=== PATIENT | male | born 1955 | race Caucasian/White ===

== ENCOUNTER 2019-11-12 22:17 | Emergency (ER) | payer MEDICARE, OTHER ==
--- NOTE | 2019-11-12 22:36 | EDM.PDOC ---
ED HPI GENERAL MEDICAL PROBLEM - General Chief Complaint: Back Pain or Injury Stated Complaint: [facility] Time Seen by Provider: 11/12/19 22:26 - History of Present Illness INITIAL COMMENTS - FREE TEXT/NARRATIVE: 64-year-old male presents the emergency room with pain under his left shoulder blade. This started around 3:00 this afternoon and does not get any better. The patient was riding in a combine when this occurred. Patient really denies any injury or trauma to the area. About 4 hours prior to the pain starting he was working on some trailers and was crawling underneath him but does not recall anything that would have caused an injury like this. What he describes as a knot on the undersurface of his shoulder blade. He has no breathing difficulties no shortness of breath no classic chest pain. Denies any gastrointestinal symptoms no abdominal pain. Does have history of back problems has had 2 back surgeries in the past but this is a lot different type of pain. Upper Back Pain Score (Numeric/FACES): 10 - Related Data Allergies Allergy/AdvReac Type Severity Reaction Status Date / Time No Known Allergies Allergy Verified 11/12/19 22:27 Home Meds: Home Meds . [No Known Home Meds] 11/12/19 [History] ED ROS GENERAL - Review of Systems Review Of Systems: See Below Constitutional: Reports: No Symptoms HEENT: Reports: No Symptoms Respiratory: Reports: No Symptoms Cardiovascular: Reports: Chest Pain (He does not have classic back pain but his pain could be chest in origin.). Denies: No Symptoms Endocrine: Reports: No Symptoms GI/Abdominal: Reports: No Symptoms : Reports: No Symptoms Musculoskeletal: Reports: Back Pain Skin: Reports: No Symptoms Neurological: Reports: No Symptoms ED EXAM,LOWER BACK PAIN/INJURY - Physical Exam Exam: See Below Exam Limited By: Other (His blood pressure was a little high with a systolic of 150 however this is come down to 129.) General Appearance: Alert, No Apparent Distress Head: Atraumatic, Normocephalic Neck: Normal Inspection, Supple, Non-Tender, Full Range of Motion Respiratory/Chest: No Respiratory Distress, Lungs Clear, Normal Breath Sounds Cardiovascular: Regular Rate, Rhythm, No Edema, No Murmur (Male) Exam: No Hernia Rectal (Males) Exam: Perirectal Abscess Back Exam: Other (The pain is right underneath the scapula I cannot palpate or manipulate his scapula in the any way to make the pain worse). No: Muscle Spasm, Paraspinal Tenderness, Vertebral Tenderness Extremities: Normal Inspection, No Pedal Edema Course - Vital Signs Last Recorded V/S: Last Vital Signs Temp 36.4 C 11/12/19 22:25 Pulse 74 11/12/19 22:25 Resp 20 11/12/19 22:25 BP 150/85 H 11/12/19 22:25 Pulse Ox 97 11/12/19 22:25 - Orders/Labs/Meds Orders: Active Orders 24 hr Category Date Time Status EKG Documentation Completion [RC] STAT Care 11/12/19 22:43 Active Chest 1V Frontal [CR] Stat Exams 11/12/19 22:42 Ordered Labs: Laboratory Tests 11/12/19 11/12/19 11/12/19 Range/Units 23:03 23:03 23:03 WBC 6.90 (4.23-9.07) K/mm3 RBC 4.51 L (4.63-6.08) M/mm3 Hgb 14.6 (13.7-17.5) gm/dl Hct 41.7 (40.1-51.0) % MCV 92.5 H (79.0-92.2) fl MCH 32.4 H (25.7-32.2) pg MCHC 35.0 (32.2-35.5) g/dl RDW Std Deviation 42.4 (35.1-43.9) fL Plt Count 274 (163-337) K/mm3 MPV 8.8 L (9.4-12.3) fl Neut % (Auto) 69.2 H (34.0-67.9) % Lymph % (Auto) 17.1 L (21.8-53.1) % [place] % (Auto) 8.6 (5.3-12.2) % Eos % (Auto) 4.1 (0.8-7.0) Baso % (Auto) 0.9 (0.1-1.2) % Neut # (Auto) 4.78 (1.78-5.38) K/mm3 Lymph # (Auto) 1.18 L (1.32-3.57) K/mm3 [place] # (Auto) 0.59 (0.30-0.82) K/mm3 Eos # (Auto) 0.28 (0.04-0.54) K/mm3 Baso # (Auto) 0.06 (0.01-0.08) K/mm3 D-Dimer, Quantitative 0.33 (0.19-0.50) mg/L Sodium 128 L (136-145) mEq/L Potassium 4.0 (3.5-5.1) mEq/L Chloride 94 L (98-107) mEq/L Carbon Dioxide 26 (21-32) mEq/L Anion Gap 12.0 (5-15) BUN 6 L (7-18) mg/dL Creatinine 0.8 (0.7-1.3) mg/dL Est Cr Clr Drug Dosing 80.08 mL/min Estimated GFR (MDRD) > 60 (>60) mL/min BUN/Creatinine Ratio 7.5 L (14-18) Glucose 109 (80-115) mg/dL Calcium 8.9 (8.5-10.1) mg/dL Total Bilirubin 0.3 (0.2-1.0) mg/dL AST 28 (15-37) U/L ALT 19 (16-63) U/L Alkaline Phosphatase 105 (46-116) U/L Troponin I < 0.017 (0.00-0.056) ng/mL Total Protein 7.0 (6.4-8.2) g/dl Albumin 3.5 (3.4-5.0) g/dl Globulin 3.5 gm/dL Albumin/Globulin Ratio 1.0 (1-2) Meds: Medications Discontinued Medications Generic Name Dose Route Start Last Admin Trade Name Suman PRN Reason Stop Dose Admin Hydrocodone Bitart/Acetaminophen 1 tab 11/12/19 23:53 Wetmore 325-5 Mg PO 11/12/19 23:54 ONETIME ONE - Re-Assessments/Exams Free Text/Narrative Re-Assessment/Exam: 11/12/19 23:56 Work-up thus far is unremarkable. Chest x-ray shows no acute changes EKG is nondiagnostic without acute ST-T wave changes he has a mild sinus tachycardia rate 101 he has been up as high as 104 that I have seen on telemetry oftentimes down into the mid 90s. This could be secondary to pain. At this point I discussed further evaluation with the patient including but not limited to 1 rechecking a troponin in 2 hours[address] of the chest to see if there is some else going on, especially with this borderline tachycardia the possibil ity of a PE does exist. Unlikely is a problem with his aorta. At this point the patient really wants to go home. On repeat examination his scapula is sitting up a little bit more than it is on the right side but with careful palpation around it I cannot elicit any discomfort he could have a subscapular spasm that I am just not getting hold of. But with palpation of his back and scapula I cannot elicit his discomfort, this I find concerning as well. Patient would like to go home. I went over this several times with the patient. We will give him a Wetmore now and I will discharge him with some from the machine out in the waiting room #21 every 6 hours as needed with the routine precautions. Departure - Departure Time of Disposition: 00:01 Disposition: Home, Self-Care 01 Clinical Impression: Left subscapular pain - Discharge Information Forms: ED Department Discharge Additional Instructions: Return to the emergency room with any questions problems or worsening symptoms. Follow-up with your regular physician early this next week for recheck. You have been given hydrocodone/acetaminophen, from the machine out in the waiting room. Take 1 every 4-6 hours as needed for pain. This medication can cause slower reaction times and at times poor judgment. Allow 12 hours after using this medication before driving or returning to work. You were given #20. If using this medication on a routine basis it can cause constipation use MiraLAX or a good stool softener if using this on a regular basis. Sepsis Event Note (ED) - Evaluation Sepsis Screening Result: No Definite Risk - Focused Exam Vital Signs: Vital Signs Temp Pulse Resp BP Pulse Ox 11/12/19 22:25 36.4 C 74 20 150/85 H 97 - My Orders Last 24 Hours: My Active Orders 11/12/19 22:42 Chest 1V Frontal [CR] Stat 11/12/19 22:43 EKG Documentation Completion [RC] STAT - Assessment/Plan Last 24 Hours: My Active Orders 11/12/19 22:42 Chest 1V Frontal [CR] Stat 11/12/19 22:43 EKG Documentation Completion [RC] STAT
[2019-11-12] MEDS ORDERED: Acetaminophen/HYDROcodone 325-5 MG Tab PO ONE (23:53)
--- NOTE | 2019-11-14 08:53 | CR ---
Chest: Frontal view of the chest was obtained. Comparison: No prior chest imaging is available. Heart size and mediastinum are normal. Scattered degenerative change is noted within the spine. Bony structures are grossly intact. Impression: 1. Nothing acute is seen on frontal chest x-ray. Diagnostic code #1 This report was dictated in MDT MTDD
== END 2019-11-13 00:05 | disposition home or self-care (01) ==
LOC: JD.ED 22:17
DX: M25.512 Pain in left shoulder (principal); R07.89 Other chest pain
CPT/HCPCS: 36415; 71045; 80053; 84484; 85025; 85379; 93005; 99284; A9270; 99283

== ENCOUNTER 2022-05-21 22:48 | Emergency (ER) | payer MEDICARE, OTHER ==
[2022-05-21] MEDS ORDERED: Sodium Chloride 0.9% 10 ML Syringe FLUSH PRN (23:09)
[2022-05-21] MEDS ORDERED: Ketorolac 30 MG/ML SDV IVPUSH ONE (23:11)
[2022-05-22] MEDS ORDERED: HYDROmorphone 0.5 MG/0.5 ML Syringe IVPUSH ONE (00:18)
== END 2022-05-22 01:55 | disposition home or self-care (01) ==
LOC: JD.ED 22:48
DX: R25.2 Cramp and spasm (principal); M25.512 Pain in left shoulder; Z72.0 Tobacco use
CPT/HCPCS: 36415; 71275; 80053; 84484; 85025; 93005; 96374; 96375; 96376; 99284; J1170; J1885; J3360; J3490; 93010